=== PATIENT | male | born 1960 | race African-American/Black ===

== ENCOUNTER 2020-03-29 12:40 | Emergency (ER) | payer OTHER ==
[2020-03-29 12:46] VITALS: BP 134/76; PULSE 86; TEMP 98.3; BMI 27.5
[2020-03-29] MEDS ORDERED: IBUPROFEN 600 MG TABLET (FP) PO ONE ×2 (13:31→13:32)
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
== END 2020-03-29 15:44 | disposition home or self-care (01) ==
LOC: JERFT 12:40
DX: S90.02XA Contusion of left ankle, initial encounter (principal)
CPT/HCPCS: 73610-TC-LT-FY; 73630-TC-LT; 99283-25